=== PATIENT | female | born 1945 | race Caucasian/White ===

== ENCOUNTER 2017-12-05 11:50 | Emergency (ER) | payer MEDICARE ==
[2017-12-05 12:32] LABS: BASOPHILS # (AUTO) 0.1 10^3/uL (0.0-0.1); EOSINOPHILS # (AUTO) 0.3 10^3/uL (0.0-0.7); EOSINOPHILS % (AUTO) 3.9 %; HGB - HEMOGLOBIN 14.9 g/dL (12.0-16.0); LYMPHOCYTES # (AUTO) 2.2 10^3/uL (1.5-3.5); LYMPHOCYTES % (AUTO) 27.3 %; MEAN CORPUSCULAR HEMOGLOBIN 31.9 pg (27.0-31.0); MEAN CORPUSCULAR HGB CONC 33.6 g/dL (32.0-36.0); MEAN CORPUSCULAR VOLUME 94.8 fL (81.0-99.0); MEAN PLATELET VOLUME 7.7 fL (7.9-10.8); MONOCYTES # (AUTO) 0.5 10^3/uL (0.0-1.0); MONOCYTES % (AUTO) 5.9 %; NEUTROPHILS % (AUTO) 61.9 %; PLT - PLATELET COUNT 296 10^3/uL (130-450); RED BLOOD COUNT 4.68 10^6/uL (4.20-5.40); RED CELL DISTRIBUTION WIDTH 13.3 % (12.0-15.0); WHITE BLOOD COUNT 8.1 x10^3/uL (4.8-10.8)
[2017-12-05 12:45] LABS: ALBUMIN 4.4 g/dL (3.2-5.5); ALBUMIN/GLOBULIN RATIO 1.2 (1.0-2.2); BILIRUBIN,TOTAL 0.6 mg/dL (0.2-1.0); CALCIUM 9.7 mg/dL (8.5-10.3); CREATININE 0.8 mg/dL (0.4-1.0); TOTAL PROTEIN 8.1 g/dL (6.7-8.2)
--- NOTE | 2017-12-05 13:49 | ED Physician Documentation ---
PD HPI ABD PAIN - Stated complaint Stated Complaint: AB PX - Chief complaint Chief Complaint: Abd Pain - History obtained from History obtained from: Patient - History of Present Illness Timing - onset: How many weeks ago (2) Timing - duration: Weeks (2) Timing - details: Waxing and waning Pain level max: 5 Pain level now: 3 Quality: Aching, Pain Location: RUQ, LLQ Radiation: Other (non-radiating) Improved by: Other (nothing) Worsened by: Eating Associated symptoms: No: Fever, Nausea, Vomiting, Hematemesis, Diarrhea, Constipation, Melena, Hematochezia Similar symptoms before: Diagnosis (states has been told she has "gallstones") Recently seen: Not recently seen Review of Systems Ten Systems: 10 systems reviewed and negative Constitutional: denies: Fever, Chills Ears: denies: Ear pain Nose: denies: Rhinorrhea / runny nose, Congestion Throat: denies: Sore throat Cardiac: denies: Chest pain / pressure Respiratory: denies: Cough GI: denies: Nausea, Vomiting, Diarrhea, Hematemesis, Bloody / black stool Skin: denies: Rash Musculoskeletal: denies: Neck pain, Back pain Neurologic: denies: Focal weakness, Numbness, Headache PD PAST MEDICAL HISTORY - Past Medical History Past Medical History: Yes - Past Surgical History Past Surgical History: Yes General: Appendectomy - Present Medications Home Medications: Ambulatory Orders Medication Instructions Recorded Confirmed ALPRAZolam [Alprazolam] mg PO 12/05/17 Atorvastatin [Lipitor] 12/05/17 Cephalexin [Keflex] 500 mg PO Q6H #28 capsule 12/05/17 Meloxicam [Mobic] 7.5 mg PO BID PRN #20 tablet 12/05/17 QUEtiapine [SEROquel] mg PO ONCE 12/05/17 - Allergies Allergies/Adverse Reactions: Allergies Allergy/AdvReac Type Severity Reaction Status Date / Time No Known Drug Allergies Allergy Verified 12/05/17 14:12 - Living Situation Living Arrangement: reports: At home - Social History Does the pt smoke?: No Does the pt drink ETOH?: No Does the pt have substance abuse?: No - Family History Family history: reports: Non contributory PD ED PE NORMAL - Vitals Vital signs reviewed: Yes - General General: Alert and oriented X 3, No acute distress - HEENT HEENT: Moist mucous membranes - Neck Neck: Supple, no meningeal sign - Cardiac Cardiac: RRR - Respiratory Respiratory: No respiratory distress, Clear bilaterally - Abdomen Abdomen: Soft, Non distended, Other (TTP RUQ and LLQ. no peritoneal signs. equivocal waddell's sign) - Derm Derm: Warm and dry - Neuro Neuro: Alert and oriented X 3 - Psych Psych: Normal mood, Normal affect Results - Vitals Vitals: Vital Signs - 24 hr 12/05/17 12/05/17 12:04 15:00 Temperature 36.0 C L Heart Rate 68 63 Respiratory 16 18 Rate Blood Pressure 134/110 H 139/77 H O2 Saturation 100 98 Oxygen O2 Source Room air - Labs Labs: Laboratory Tests 12/05/17 12/05/17 12/05/17 12:15 12:20 12:20 WBC 8.1 RBC 4.68 Hgb 14.9 Hct 44.4 MCV 94.8 MCH 31.9 H MCHC 33.6 RDW 13.3 Plt Count 296 MPV 7.7 L Neut # (Auto) 5.0 Lymph # (Auto) 2.2 [place] # (Auto) 0.5 Eos # (Auto) 0.3 Baso # (Auto) 0.1 Absolute Nucleated RBC 0.00 Nucleated RBC % 0.0 Sodium 135 Potassium 4.0 Chloride 100 L Carbon Dioxide 27 Anion Gap 8.0 BUN 20 Creatinine 0.8 Estimated GFR (MDRD) 71 L Glucose 103 H Calcium 9.7 Total Bilirubin 0.6 AST 32 ALT 47 Alkaline Phosphatase 65 Total Protein 8.1 Albumin 4.4 Globulin 3.7 Albumin/Globulin Ratio 1.2 Lipase 25 Urine Color YELLOW Urine Clarity HAZY Urine pH 5.0 Ur Specific [place] 1.020 Urine Protein NEGATIVE Urine Glucose (UA) NEGATIVE Urine Ketones NEGATIVE Urine Occult Blood NEGATIVE Urine Nitrite NEGATIVE Urine Bilirubin NEGATIVE Urine Urobilinogen 0.2 (NORMAL) Ur Leukocyte Esterase SMALL H Urine RBC 0-5 Urine WBC 11-25 H Ur Squamous Epith Cells FEW Squamous Urine Bacteria Many H Urine Yeast PRESENT Ur Microscopic Review INDICATED Urine Culture Comments INDICATED - Rads (name of study) RUQ US Radiology: Prelim report reviewed, EMP read contemporaneously, See rad report ( Cholelithiasis. Borderline wall thickening (4 mm). No pericholecystic fluid or ductal dilation) PD MEDICAL DECISION MAKING - ED course Complexity details: reviewed results, re-evaluated patient, considered differential, d/w patient, d/w regional sales consultant ED course: Patient is a 72-year-old female who presents to the emergency department with abdominal pain. Appears to have a UTI and will treat her for this. Also had yeast in the urine and given Diflucan here. She has cholelithiasis with borderline wall thickening but no other secondary signs of acute cholecystitis. Abdomen is soft, nontender nondistended on serial exam. She states that she would like to [facility] she should have surgery for her gallbladder she does seem to have symptoms of biliary colic. I did discuss the case with Dr. Mcleod, general surgery on- call who recommended close follow-up with her doctor. [place]. Patient counseled regarding signs and symptoms for which I believe and urgent re-evaluation would be necessary. Patient with good understanding of and agreement to plan and is comfortable going home at this time This document was made in part using voice recognition software. While efforts are made to proofread this document, sound alike and grammatical errors may occur. - Sepsis Event Vital Signs: Vital Signs - 24 hr 12/05/17 12/05/17 12:04 15:00 Temperature 36.0 C L Heart Rate 68 63 Respiratory 16 18 Rate Blood Pressure 134/110 H 139/77 H O2 Saturation 100 98 Oxygen O2 Source Room air Departure - Departure Disposition: 01 Home, Self Care Clinical Impression: Biliary colic Abdominal pain Qualifiers: Abdominal location: right upper quadrant Qualified Code(s): R10.11 - Right upper quadrant pain UTI (urinary tract infection) Qualifiers: Urinary tract infection type: acute cystitis Hematuria presence: without hematuria Qualified Code(s): N30.00 - Acute cystitis without hematuria Condition: Good Instructions: ED Gallstone W Biliary Colic Follow-Up: your,doctor in 3 days [Other] Prescriptions: Cephalexin [Keflex] 500 mg PO Q6H #28 capsule Meloxicam [Mobic] 7.5 mg PO BID PRN #20 tablet PRN Reason: Pain Comments: Return if you worsen. Take all antibiotics until gone. It is recommended to see your doctor in the next 3 days to ensure you can see a surgeon to have your gallbladder removed. Discharge Date/Time: 12/05/17 15:47
[2017-12-05 14:18] LABS: BILIRUBIN,URINE NEGATIVE (NEGATIVE); GLUCOSE, URINE (UA) NEGATIVE (NEGATIVE); KETONES,URINE (UA) NEGATIVE (NEGATIVE); LEUKOCYTE ESTERASE, URINE SMALL (NEGATIVE); NITRITE,URINE NEGATIVE (NEGATIVE); OCCULT BLOOD,URINE NEGATIVE (NEGATIVE); PROTEIN,URINE NEGATIVE (NEGATIVE); UROBILINOGEN,URINE 0.2 (NORMAL) E.U./dL (NORMAL)
[2017-12-05 14:24] LABS: CLARITY,URINE HAZY (CLEAR)
--- NOTE | 2017-12-05 14:26 | Ultrasound Report ---
EXAM: ABDOMEN ULTRASOUND LIMITED, RUQ EXAM DATE: 12/05/2017 02:19 PM. CLINICAL HISTORY: Right upper quadrant pain. COMPARISON: None. TECHNIQUE: Real-time scanning was performed with static images obtained. FINDINGS: Liver: Normal in size and echotexture. 14.5 cm. Main portal vein flow: Hepatopetal. Gallbladder: Intraluminal stone measuring up to 1.4 cm. Borderline wall thickening (4 mm). No pericho lecystic fluid.. Biliary System: CBD measures 6 mm. No intrahepatic or extrahepatic ductal dilatation. Other: The pancreas is secured by bowel gas. The right kidney is grossly normal. IMPRESSION: Cholelithiasis. Borderline wall thickening (4 mm). No pericholecystic fluid or ductal dil ation. [facility] Referring Provider Line: [phone] SITE ID: [id number]
[2017-12-05 14:33] LABS: BACTERIA,URINE Many /HPF (None Seen); RBC,URINE 0-5 /HPF (0-5); SQUAMOUS EPITHELIAL CELL,UR FEW Squamous (<= Few); YEAST,URINE PRESENT
[2017-12-05] MEDS ORDERED: ACETAMINOPHEN 325 MG TABLET PO STA (14:51)
[2017-12-05 15:01] VITALS: BP 139/77
[2017-12-05] MEDS ORDERED: FLUCONAZOLE 100 MG TABLET PO STA (15:31)
== END 2017-12-05 15:47 | disposition home or self-care (01) ==
LOC: ED 11:50
DX: R10.11 Right upper quadrant pain (principal); N30.00 Acute cystitis without hematuria
CPT/HCPCS: 36415; 76705; 80053; 81001; 83690; 85025; 87077; 87086; 87181; 99283; 99284; A9270; 81003

== ENCOUNTER 2018-05-12 09:22 | Outpatient (CLI) | payer MEDICARE ==
[2018-05-12 18:27] LABS: BASOPHILS % (AUTO) 0.8 %; EOSINOPHILS # (AUTO) 0.3 10^3/uL (0.0-0.7); EOSINOPHILS % (AUTO) 5.8 %; HGB - HEMOGLOBIN 13.2 g/dL (12.0-16.0); LYMPHOCYTES # (AUTO) 2.1 10^3/uL (1.5-3.5); LYMPHOCYTES % (AUTO) 39.5 %; MEAN CORPUSCULAR HEMOGLOBIN 31.4 pg (27.0-31.0); MEAN CORPUSCULAR HGB CONC 32.6 g/dL (32.0-36.0); MEAN CORPUSCULAR VOLUME 96.2 fL (81.0-99.0); MEAN PLATELET VOLUME 7.8 fL (7.9-10.8); MONOCYTES # (AUTO) 0.4 10^3/uL (0.0-1.0); NEUTROPHILS # (AUTO) 2.4 10^3/uL (1.5-6.6); NEUTROPHILS % (AUTO) 45.9 %; PLT - PLATELET COUNT 333 10^3/uL (130-450); RED BLOOD COUNT 4.21 10^6/uL (4.20-5.40); WHITE BLOOD COUNT 5.2 x10^3/uL (4.8-10.8)
[2018-05-12 18:55] LABS: ALBUMIN 4.1 g/dL (3.2-5.5); ALBUMIN/GLOBULIN RATIO 1.5 (1.0-2.2); ALKALINE PHOSPHATASE 45 IU/L (42-121); ALT ALANINE AMINOTRANSFERASE 31 IU/L (10-60); AST ASPARTATE AMINOTRANSFERASE 18 IU/L (10-42); BILIRUBIN,TOTAL 0.6 mg/dL (0.2-1.0); BUN - BLOOD UREA NITROGEN 23 mg/dL (6-20); CALCIUM 9.4 mg/dL (8.5-10.3); CARBON DIOXIDE - CO2 29 mmol/L (21-32); CHLORIDE 101 mmol/L (101-111); CHOL/HDL RATIO 2.4 (<4.4); CHOLESTEROL 180 mg/dL; CREATININE 0.9 mg/dL (0.4-1.0); GFR - MDRD 62 (>89); GLUCOSE 96 mg/dL (70-100); HDL CHOLESTEROL 76 mg/dL; LDL CHOLESTEROL,CALCULATED 91 mg/dL; LDL/HDL RATIO 1.2 (<4.4); SODIUM 137 mmol/L (135-145); TOTAL PROTEIN 6.8 g/dL (6.7-8.2); VLDL CHOLESTEROL 13 mg/dL
== END 2018-05-12 09:23 | disposition home or self-care (01) ==
LOC: LAB.F 09:22
PROVIDERS: ATTEND Nurse Practitioner Primary Care
DX: Z00.00 Encounter for general adult medical examination without abnormal findings (principal); Z79.899 Other long term (current) drug therapy; E78.5 Hyperlipidemia, unspecified
CPT/HCPCS: 36415; 80053; 80061; 83721; 85025

== ENCOUNTER 2020-06-07 12:51 | Outpatient (CLI) | payer MEDICARE ==
[2020-06-07 19:54] LABS: BASOPHILS # (AUTO) 0.1 10^3/uL (0.0-0.1); EOSINOPHILS # (AUTO) 0.3 10^3/uL (0.0-0.7); EOSINOPHILS % (AUTO) 4.9 %; HGB - HEMOGLOBIN 13.8 g/dL (12.0-16.0); LYMPHOCYTES # (AUTO) 2.3 10^3/uL (1.5-3.5); MEAN CORPUSCULAR HEMOGLOBIN 31.2 pg (27.0-31.0); MEAN CORPUSCULAR HGB CONC 32.8 g/dL (32.0-36.0); MEAN CORPUSCULAR VOLUME 95.2 fL (81.0-99.0); MEAN PLATELET VOLUME 10.8 fL (7.9-10.8); MONOCYTES # (AUTO) 0.6 10^3/uL (0.0-1.0); MONOCYTES % (AUTO) 8.8 %; NEUTROPHILS # (AUTO) 3.1 10^3/uL (1.5-6.6); NEUTROPHILS % (AUTO) 49.1 %; PLT - PLATELET COUNT 271 10^3/uL (130-450); RED BLOOD COUNT 4.42 10^6/uL (4.20-5.40); RED CELL DISTRIBUTION WIDTH 12.8 % (12.0-15.0); WHITE BLOOD COUNT 6.3 x10^3/uL (4.8-10.8)
[2020-06-07 20:18] LABS: ALBUMIN 4.1 g/dL (3.2-5.5); BILIRUBIN,DIRECT 0.1 mg/dL (0.1-0.5); BILIRUBIN,TOTAL 0.9 mg/dL (0.2-1.0); TOTAL PROTEIN 6.9 g/dL (6.7-8.2)
[2020-06-07 20:25] LABS: THYROID STIMULATING HORMONE 1.27 uIU/mL (0.34-5.60)
[2020-06-07 20:28] LABS: FREE T4 (FREE THYROXINE) 0.86 ng/dL (0.58-1.64)
[2020-06-14 17:43] LABS: ENDOMYSIAL ANTIBODY SCR IGA NEGATIVE (NEGATIVE); GLIADIN (DEAMIDATED) AB IGA 4 U (<20); GLIADIN (DEAMIDATED) AB IGG 2 U (<20); IMMUNOGLOBULIN A 128 mg/dL (70-320)
== END 2020-06-07 12:52 | disposition home or self-care (01) ==
LOC: LAB.S 12:51
PROVIDERS: ATTEND Surgery
DX: R19.7 Diarrhea, unspecified (principal)
CPT/HCPCS: 36415; 80076; 82784; 83516; 84439; 84443; 85025; 86256

== ENCOUNTER 2020-08-30 14:18 | Outpatient (CLI) | payer MEDICARE ==
[2020-08-30] MEDS ORDERED: IOVERSOL 320 100 ML VIAL IVP ONE ×2 (15:00→16:17)
[2020-08-30] MEDS ORDERED: IOPAMIDOL-300 50 ML VIAL ONE (15:00)
[2020-08-30 15:20] LABS: CREATININE 0.7 mg/dL (0.4-1.0)
[2020-08-30] MEDS ORDERED: IOPAMIDOL-300 50 ML VIAL PO ONE (16:18)
--- NOTE | 2020-08-30 17:03 | CT Report ---
PROCEDURE: Abdomen/Pelvis W INDICATIONS: ABD PX,BLOATING,DIARRHEA,ANOREXIA,NAUSEA CONTRAST: IV CONTRAST: Optiray 320 ml: 100 PO CONTRAST: Isovue 300 ml50 TECHNIQUE: After the administration of IV and oral contrast, 5 mm thick sections acquired from the diaphragms to the symphysis. 5 mm thick coronal and sagittal reformats were acquired. For radiation dose reducti on, the following was used: automated exposure control, adjustment of mA and/or kV according to carmina ent size. COMPARISON: None. FINDINGS: Image quality: Excellent. ABDOMEN: Lung bases: Lung bases are clear. Heart size is normal. Solid organs: Spleen unremarkable. Hepatic steatosis.. Gallbladder surgically absent Biliary system is non dilated. Pancreas enhances normally. No adrenal nodules. Kidneys demonstrate normal size a nd enhancement, without hydronephrosis. Peritoneum and bowel: Bowel loops demonstrate normal wall thickness and caliber. No free fluid or a ir. Normal appendix. Scattered nonspecific air-fluid levels. No transition point. Incidental colonic diverticulosis. Nodes and vessels: No retroperitoneal or mesenteric adenopathy by size criteria. Aorta and inferior vena cava are normal in size. Miscellaneous: No ventral hernias. PELVIS: Genitourinary: Bladder wall thickness is normal. Miscellaneous: No inguinal hernias or adenopathy. Bones: No suspicious bony lesions. Presumed bilateral pelvic bone graft harvest sites. Age-indeterm inate mild T12 compression fracture and/or Schmorl's node. IMPRESSION: No specific evidence of bowel obstruction although continued surveillance with abdominal radiographs could be performed if the patient's symptoms do not improve. Hepatic steatosis Status post cholecystectomy Age-indeterminate T12 compression fracture and Schmorl's node of unclear clinical significance. Recom mend correlation to point tenderness Elsewhere, no acute abnormality Reviewed by: Barney Ortega MD on 08/30/2020 5:02 PM PST Approved by: Barney Ortega MD on 08/30/2020 5:02 PM PST Station ID: [id number]
== END 2020-08-30 14:19 | disposition home or self-care (01) ==
LOC: LAB 14:18
PROVIDERS: ATTEND Internal Medicine
DX: R10.9 Unspecified abdominal pain (principal); R14.0 Abdominal distension (gaseous); R19.7 Diarrhea, unspecified; R63.0 Anorexia; R11.0 Nausea; Z79.899 Other long term (current) drug therapy; K76.0 Fatty (change of) liver, not elsewhere classified
CPT/HCPCS: 36415; 74177; 82565; Q9967

== ENCOUNTER 2020-09-19 11:44 | Outpatient (CLI) | payer MEDICARE ==
--- NOTE | 2020-09-19 17:56 | XRAY Report ---
PROCEDURE: Tib/Fib RT INDICATIONS: PAROXYSMAL ATRIAL FIBRILLATION TECHNIQUE: 2 views of the tibia and fibula were acquired. COMPARISON: None FINDINGS: Bones: No acute fractures or dislocations. No suspicious bony lesions. Old distal tibia and fibula r fractures, with apparent osseous fusion between the distal tibia and fibula from the prior trauma. Soft tissues: No suspicious soft tissue calcifications or masses. On the lateral view there is an u nusual lobulation of the anterior soft tissues over the proximal tibial diaphysis, possibly represent ing infection or old posttraumatic change. IMPRESSION: Old trauma to the distal tibia and fibula with interosseous fusion. Soft tissue lobulation ventral to the proximal tibial diaphysis could represent acute infection or old trauma with scarring. Reviewed by: Peewee Miller MD on 09/19/2020 5:55 PM PDT Approved by: Peewee Miller MD on 09/19/2020 5:55 PM PDT Station ID: [id number]
== END 2020-09-19 11:45 | disposition home or self-care (01) ==
LOC: DI 11:44
PROVIDERS: ATTEND Internal Medicine
DX: M79.604 Pain in right leg (principal); S82.301S Unspecified fracture of lower end of right tibia, sequela; S82.831S Other fracture of upper and lower end of right fibula, sequela

== ENCOUNTER 2020-09-30 07:00 | Outpatient (CLI) | payer MEDICARE ==
--- NOTE | 2020-09-30 12:07 | XRAY Report ---
PROCEDURE: Foot 3 View RT INDICATIONS: R FOOT PX TECHNIQUE: 3 views of the foot were acquired. COMPARISON: Ankle plain films same day. FINDINGS: Bones: No acute fractures or dislocations. No suspicious bony lesions. There is a distortion of wh at likely is the distal fibular diaphysis, but only partially visualized, and possibly related to tra shanti. No acute trauma to the foot is seen. 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 Soft tissues: No tibiotalar joint effusion. Achilles tendon appears normal. IMPRESSION: Distortion of the distal fibula is the likely cause for the bulbous enlargement of the posterior aspe ct of the tibia/fibula seen on the lateral view. Please correlate clinically for prior trauma to that area. No comparisons are available for review that includes this area. Therefore, follow-up by tibia /fibula full length frontal and lateral views may be warranted. Reviewed by: Peewee Miller MD on 09/30/2020 12:06 PM PDT Approved by: Peewee Miller MD on 09/30/2020 12:06 PM PDT Station ID: [id number]
--- NOTE | 2020-09-30 12:11 | XRAY Report ---
PROCEDURE: Ankle 3 View RT INDICATIONS: R ANKLE PX TECHNIQUE: 3 views of the ankle were acquired. COMPARISON: Foot plain film same day. FINDINGS: Bones: No acute fractures or dislocations. There is a distortion of the distal tibia and fibula in the region of the diaphysis and metadiaphyseal junctions. There is interosseous bridging over a lengt h of approximately 7 cm. Medial bowing in this area is present,, presumably posttraumatic. Ankle mort ise is normally aligned. No suspicious bony lesions. Soft tissues: No tibiotalar joint effusion. Achilles tendon appears normal. IMPRESSION: Presumed prior trauma to the distal diaphysis of both the tibia and fibula. Bowing along what appears to be the metadiaphyseal fracture planes is present, medially. No definite acute diseas e is found. The tibia and fibula more superiorly are not evaluated by this study. If clinically clair ed a follow-up full length image could be obtained to assess for possible additional abnormality is m ore superiorly. There is osseous bridging at the interosseous membrane in the area of presumed prior trauma, measurin g up to 7 cm in craniocaudad length. Reviewed by: Peewee Miller MD on 09/30/2020 12:10 PM PDT Approved by: Peewee Miller MD on 09/30/2020 12:10 PM PDT Station ID: [id number]
== END 2020-09-30 23:59 | disposition home or self-care (01) ==
LOC: DI.N 07:00
PROVIDERS: ATTEND Orthopaedic Surgery
DX: M25.571 Pain in right ankle and joints of right foot (principal); M79.671 Pain in right foot

== ENCOUNTER 2020-10-29 07:00 | Outpatient (CLI) | payer MEDICARE ==
--- NOTE | 2020-10-29 14:03 | XRAY Report ---
PROCEDURE: Foot 3 View RT INDICATIONS: NONDISPLACED FX OF R 2ND METATARSAL TECHNIQUE: 3 views of the foot were acquired. COMPARISON: 09/30/2020 plain film FINDINGS: Bones: Subacute proximal second metatarsal fracture is present, as before. There is cortication of th e fracture margins. No suspicious bony lesions. Soft tissues: No tibiotalar joint effusion. Achilles tendon appears normal. IMPRESSION: No change in subacute second metatarsal fracture. Reviewed by: Sarthak Rincon MD on 10/29/2020 2:01 PM PDT Approved by: Sarthak Rincon MD on 10/29/2020 2:01 PM PDT Station ID: [id number]
== END 2020-10-29 23:59 | disposition home or self-care (01) ==
LOC: DI.N 07:00
PROVIDERS: ATTEND Orthopaedic Surgery
DX: S92.324A Nondisplaced fracture of second metatarsal bone, right foot, initial encounter for closed fracture (principal)

== ENCOUNTER 2020-11-19 18:59 | Outpatient (CLI) | payer MEDICARE ==
--- NOTE | 2020-11-19 17:48 | XRAY Report ---
PROCEDURE: Foot 3 View RT INDICATIONS: NONDISPLACED FX OF R 2ND METATARSAL TECHNIQUE: 3 views of the foot were acquired. COMPARISON: Prior foot series dated October 29, 2020. FINDINGS: Bones: No significant interval change in appearance or alignment of minimally displaced fracture of t he base of the second metatarsus where the bony lucency is still visible and mild amount of sclerosis present. Background osteoarthritic changes redemonstrated and healed fracture deformities of the dis shaggy fibula and tibia incompletely visualized. Soft tissues: No tibiotalar joint effusion. Achilles tendon appears normal. IMPRESSION: No significant interval change in appearance or alignment of subacute healing fracture involving the base of the second metatarsus. Reviewed by: KAUSHIK Sanchze on 11/19/2020 5:47 PM PDT Approved by: Peewee Miller MD on 11/19/2020 5:47 PM PDT Station ID: [id number]
== END 2020-11-19 23:59 | disposition home or self-care (01) ==
LOC: DI.N 18:59
PROVIDERS: ATTEND Orthopaedic Surgery
DX: S92.321D Displaced fracture of second metatarsal bone, right foot, subsequent encounter for fracture with routine healing (principal)

== ENCOUNTER 2021-04-07 09:59 | Outpatient (CLI) | payer MEDICARE ==
[2021-04-07 14:33] LABS: BASOPHILS # (AUTO) 0.1 10^3/uL (0.0-0.1); BASOPHILS % (AUTO) 1.1 %; EOSINOPHILS # (AUTO) 0.3 10^3/uL (0.0-0.7); EOSINOPHILS % (AUTO) 5.5 %; HCT - HEMATOCRIT 43.7 % (37.0-47.0); HGB - HEMOGLOBIN 14.2 g/dL (12.0-16.0); LYMPHOCYTES # (AUTO) 1.8 10^3/uL (1.5-3.5); LYMPHOCYTES % (AUTO) 34.4 %; MEAN CORPUSCULAR HEMOGLOBIN 30.9 pg (27.0-31.0); MEAN CORPUSCULAR HGB CONC 32.5 g/dL (32.0-36.0); MEAN CORPUSCULAR VOLUME 95.2 fL (81.0-99.0); MEAN PLATELET VOLUME 10.3 fL (7.9-10.8); MONOCYTES # (AUTO) 0.4 10^3/uL (0.0-1.0); MONOCYTES % (AUTO) 8.3 %; NEUTROPHILS # (AUTO) 2.7 10^3/uL (1.5-6.6); NEUTROPHILS % (AUTO) 50.5 %; PLT - PLATELET COUNT 298 10^3/uL (130-450); RED BLOOD COUNT 4.59 10^6/uL (4.20-5.40); RED CELL DISTRIBUTION WIDTH 13.2 % (12.0-15.0); WHITE BLOOD COUNT 5.3 x10^3/uL (4.8-10.8)
[2021-04-07 15:37] LABS: ALBUMIN 4.2 g/dL (3.2-5.5); ALBUMIN/GLOBULIN RATIO 1.9 (1.0-2.2); ALKALINE PHOSPHATASE 43 IU/L (42-121); ALT ALANINE AMINOTRANSFERASE 22 IU/L (10-60); AST ASPARTATE AMINOTRANSFERASE 19 IU/L (10-42); BILIRUBIN,TOTAL 0.6 mg/dL (0.2-1.0); BUN - BLOOD UREA NITROGEN 23 mg/dL (6-20); CALCIUM 9.2 mg/dL (8.5-10.3); CARBON DIOXIDE - CO2 30 mmol/L (21-32); CHLORIDE 101 mmol/L (101-111); CHOL/HDL RATIO 2.1 (<4.4); CHOLESTEROL 170 mg/dL; CREATININE 0.8 mg/dL (0.4-1.0); GFR - MDRD 70 (>89); GLUCOSE 85 mg/dL (70-100); HDL CHOLESTEROL 81 mg/dL; LDL CHOLESTEROL,CALCULATED 75 mg/dL; LDL/HDL RATIO 0.9 (<4.4); POTASSIUM 4.2 mmol/L (3.5-5.0); SODIUM 138 mmol/L (135-145); TOTAL PROTEIN 6.4 g/dL (6.7-8.2); TRIGLYCERIDES 71 mg/dL; VLDL CHOLESTEROL 14 mg/dL
[2021-04-07 15:46] LABS: THYROID STIMULATING HORMONE 1.3 uIU/mL (0.34-5.60)
== END 2021-04-07 10:00 | disposition home or self-care (01) ==
LOC: LAB.S 09:59
PROVIDERS: ATTEND Internal Medicine
DX: R53.83 Other fatigue (principal); E78.5 Hyperlipidemia, unspecified; R74.8 Abnormal levels of other serum enzymes; R63.0 Anorexia; M25.50 Pain in unspecified joint; M79.10 Myalgia, unspecified site; K76.0 Fatty (change of) liver, not elsewhere classified; F32.9 Major depressive disorder, single episode, unspecified
CPT/HCPCS: 36415; 80053; 80061; 82607; 83721; 84443; 85025

== ENCOUNTER 2021-04-09 16:38 | Outpatient (CLI) | payer MEDICARE ==
[2021-04-09 20:38] LABS: BILIRUBIN,URINE NEGATIVE (NEGATIVE); GLUCOSE, URINE (UA) NEGATIVE (NEGATIVE); KETONES,URINE (UA) NEGATIVE (NEGATIVE); LEUKOCYTE ESTERASE, URINE NEGATIVE (NEGATIVE); NITRITE,URINE NEGATIVE (NEGATIVE); OCCULT BLOOD,URINE NEGATIVE (NEGATIVE); PROTEIN,URINE NEGATIVE (NEGATIVE); UROBILINOGEN,URINE 0.2 (NORMAL) E.U./dL (NORMAL)
[2021-04-09 20:49] LABS: AMORPHOUS SEDIMENT,UR Marked /LPF; BACTERIA,URINE None Seen /HPF (None Seen); CLARITY,URINE CLOUDY (CLEAR); CRYSTALS,URINE 3-5 Calcium Oxalate /LPF; RBC,URINE None Seen /HPF (0-5); SQUAMOUS EPITHELIAL CELL,UR RARE Squamous (<= Few); WBC,URINE 0-3 /HPF (0-5)
== END 2021-04-09 16:39 | disposition home or self-care (01) ==
LOC: LAB.S 16:38
PROVIDERS: ATTEND Internal Medicine
DX: R39.9 Unspecified symptoms and signs involving the genitourinary system (principal)
CPT/HCPCS: 81001; 81003; 87086

== ENCOUNTER 2021-04-25 09:57 | Outpatient (CLI) | payer MEDICARE ==
--- NOTE | 2021-04-29 12:11 | DEXA Report ---
PROCEDURE: Dexa Spine and/or Hip INDICATIONS: POST MENOPAUSAL TECHNIQUE: Dual energy x-ray absorptiometry (DXA) was performed on a AVIcode System. Regions measur ed are the AP Spine, femoral neck, and if needed forearm. COMPARISON: None. FINDINGS: Lumbar Spine: Bone Mineral Density 0.865 g/cm/cm,T score -2.6, osteoporosis Left Femoral Neck: Bone Mineral Density 0.803 g/cm/cm, T score -1.6, osteopenia (T score greater or equal to -1.0: NORMAL) (T score from -1.1 to -2.4: OSTEOPENIA) (T score less than or equal to -2.5 to: OSTEOPOROSIS) Impression: OSTEOPOROSIS. Patient is at high risk for fracture. Patients with diagnosis of osteoporosis or osteopenia should have regular bone mineral density assess ment. For those eligible for Medicare, routine testing is allowed once every 2 years. Testing frequ ency can be increased for patients who have rapidly progressing disease or for those who are receivin g medical therapy to restore bone mass. Reviewed by: Abdirizak Jensen MD on 04/29/2021 12:10 PM PDT Approved by: Abdirizak Jensen MD on 04/29/2021 12:10 PM PDT Station ID: [id number]
== END 2021-04-25 09:58 | disposition home or self-care (01) ==
LOC: DI 09:57
PROVIDERS: ATTEND Internal Medicine
DX: M81.0 Age-related osteoporosis without current pathological fracture (principal); Z78.0 Asymptomatic menopausal state

== ENCOUNTER 2021-04-25 09:59 | Outpatient (CLI) | payer MEDICARE ==
--- NOTE | 2021-04-28 08:21 | Mammography Report ---
BILATERAL DIGITAL SCREENING MAMMOGRAM 3D/2D: 04/25/2021 CLINICAL: Routine screening. Comparison is made to exams dated: 02/19/2014 mammogram, 07/10/2010 mammogram, and 06/12/2009 mammogra m - [facility]. There are scattered fibroglandular elements in both breasts. There is a benign mass in the left breast. There also are biopsy clips in the left breast. No significant masses, calcifications, or other findings are seen in either breast. There has been no significant interval change. IMPRESSION: BENIGN There is no mammographic evidence of malignancy. A 1 year screening mammogram is recommended. This exam was interpreted at Station ID: [id number]. NOTE: For mammograms, a report in lay terms will be sent to the patient. Approximately 15% of breast malignancies will not be visualized mammographically. In the management of a palpable breast mass, a negative mammogram must not discourage biopsy of a clinically suspicious lesion. Electronically Signed By: Royer foreman/tarik:04/25/2021 12:09:23 ACR BI-RADS Category 2: Benign Finding(s) 3342F PARENCHYMAL PATTERN: (A) - The breast(s) demonstrate(s) scattered fibroglandular densities. BI-RADS CATEGORY: (2) - 2 RECOMMENDATION: (ANNUAL) - Recommend routine annual screening mammography. [id number] 1 year screening LATERALITY: (B)
== END 2021-04-25 10:00 | disposition home or self-care (01) ==
LOC: DI 09:59
PROVIDERS: ATTEND Internal Medicine
DX: Z12.31 Encounter for screening mammogram for malignant neoplasm of breast (principal)

== ENCOUNTER 2021-09-07 12:24 | Emergency (ER) | payer MEDICARE ==
[2021-09-07 12:57] LABS: BASOPHILS # (AUTO) 0.1 10^3/uL (0.0-0.1); BASOPHILS % (AUTO) 0.6 %; EOSINOPHILS # (AUTO) 0.2 10^3/uL (0.0-0.7); HGB - HEMOGLOBIN 16.1 g/dL (12.0-16.0); LYMPHOCYTES # (AUTO) 2.5 10^3/uL (1.5-3.5); LYMPHOCYTES % (AUTO) 25.4 %; MEAN CORPUSCULAR HEMOGLOBIN 31.4 pg (27.0-31.0); MEAN CORPUSCULAR HGB CONC 35.8 g/dL (32.0-36.0); MEAN CORPUSCULAR VOLUME 87.7 fL (81.0-99.0); MEAN PLATELET VOLUME 8.9 fL (7.9-10.8); NEUTROPHILS % (AUTO) 61.3 %; PLT - PLATELET COUNT 423 10^3/uL (130-450); RED BLOOD COUNT 5.13 10^6/uL (4.20-5.40); RED CELL DISTRIBUTION WIDTH 12.6 % (12.0-15.0); WHITE BLOOD COUNT 9.8 x10^3/uL (4.8-10.8)
[2021-09-07 13:12] LABS: ALBUMIN 4.2 g/dL (3.2-5.5); ALBUMIN/GLOBULIN RATIO 1.2 (1.0-2.2); BILIRUBIN,TOTAL 0.9 mg/dL (0.2-1.0); CREATININE 0.6 mg/dL (0.4-1.0); POTASSIUM 3.3 mmol/L (3.5-5.0); TOTAL PROTEIN 7.7 g/dL (6.7-8.2)
[2021-09-07] MEDS ORDERED: PROMETHAZINE INJ 25 MG in SODIUM CHLORIDE 0.9% 50 ML IV STA (16:17)
[2021-09-07] MEDS ORDERED: LORazepam 2 MG/ML VIAL IVP STA (16:17)
[2021-09-07] MEDS ORDERED: SODIUM CHLORIDE 0.9% 1,000 ML IV STA (16:17)
--- NOTE | 2021-09-07 16:28 | ED Physician Documentation ---
History of Present Illness - Stated complaint Stated Complaint: WEAKNESS/DIZZINESS - Chief complaint Chief Complaint: General - History obtained from History obtained from: Patient - History of Present Illness Timing: Today Pain level max: 0 Pain level now: 0 - Additonal information Additional information: Patient is a 76-year-old female who presents to the emergency department stating she has felt dizzy for the past 24 hours. She states whenever she moves her head she feels the room spinning around her. No neck or back pain. No headache or injury. This is associated with nausea and vomiting. No fevers or chills. No trauma. No changes to her medications. No focal neurological deficits. Has not had similar symptoms previously. Review of Systems Ten Systems: 10 systems reviewed and negative Constitutional: denies: Fever, Chills Cardiac: denies: Chest pain / pressure, Palpitations Respiratory: denies: Cough : denies: Dysuria Skin: denies: Rash Musculoskeletal: denies: Neck pain, Back pain Neurologic: denies: Headache PD PAST MEDICAL HISTORY - Past Medical History Past Medical History: Yes Cardiovascular: High cholesterol Psych: Anxiety - Past Surgical History Past Surgical History: Yes General: Appendectomy - Present Medications Home Medications: Ambulatory Orders Medication Instructions Recorded Confirmed ALPRAZolam [Alprazolam] mg PO 12/05/17 Atorvastatin [Lipitor] 12/05/17 Meloxicam [Mobic] 7.5 mg PO BID PRN #20 tablet 12/05/17 QUEtiapine [SEROquel] mg PO ONCE 12/05/17 cephALEXin [Keflex] 500 mg PO Q6H #28 capsule 12/05/17 Meclizine HCl [Motion Sickness] 25 mg PO Q6H PRN #30 tablet 09/07/21 Promethazine [Phenergan] 25 mg PO Q6H PRN #10 tab 09/07/21 - Allergies Allergies/Adverse Reactions: Allergies Allergy/AdvReac Type Severity Reaction Status Date / Time No Known Drug Allergies Allergy Verified 09/07/21 12:36 - Social History Does the pt smoke?: No Smoking Status: Never smoker Does the pt drink ETOH?: No Does the pt have substance abuse?: No - Immunizations Immunizations are current?: Yes PD ED PE NORMAL - Vitals Vital signs reviewed: Yes - General General: Alert and oriented X 3, No acute distress, Well developed/nourished - HEENT HEENT: PERRL, Moist mucous membranes - Neck Neck: Supple, no meningeal sign - Cardiac Cardiac: RRR, Strong equal pulses - Respiratory Respiratory: No respiratory distress, Clear bilaterally - Abdomen Abdomen: Soft, Non tender, Non distended - Derm Derm: Warm and dry - Extremities Extremities: No edema, No calf tenderness / cord - Neuro Neuro: Alert and oriented X 3, talcer 2-12 intact, No motor deficit, No sensory deficit, Normal speech, Other (Normal gait. Normal cerebellar tests) Eye Opening: Spontaneous Motor: Obeys Commands Verbal: Oriented GCS Score: 15 - Psych Psych: Normal mood, Normal affect Results - Vitals Vitals: Vital Signs - 24 hr 09/07/21 09/07/21 09/07/21 12:36 15:19 17:00 Temperature 36.5 C 36.7 C Heart Rate 66 52 L 51 L Respiratory 16 21 16 Rate Blood Pressure 140/69 H 136/75 H 130/65 O2 Saturation 96 100 97 09/07/21 17:57 Temperature 36.6 C Heart Rate 59 L Respiratory 16 Rate Blood Pressure 113/57 L O2 Saturation 96 Oxygen O2 Source Room air - Labs Labs: Laboratory Tests 09/07/21 09/07/21 09/07/21 12:52 12:52 16:59 WBC 9.8 RBC 5.13 Hgb 16.1 H Hct 45.0 MCV 87.7 MCH 31.4 H MCHC 35.8 RDW 12.6 Plt Count 423 MPV 8.9 Neut # (Auto) 6.0 Lymph # (Auto) 2.5 [place] # (Auto) 1.0 Eos # (Auto) 0.2 Baso # (Auto) 0.1 Absolute Nucleated RBC 0.00 Nucleated RBC % 0.0 Sodium 134 L Potassium 3.3 L Chloride 99 L Carbon Dioxide 23 Anion Gap 12.0 BUN 15 Creatinine 0.6 Estimated GFR (MDRD) 97 Glucose 115 H Calcium 9.0 Total Bilirubin 0.9 AST 26 ALT 30 Alkaline Phosphatase 54 Total Protein 7.7 Albumin 4.2 Globulin 3.5 Albumin/Globulin Ratio 1.2 Lipase 27 Urine Color YELLOW Urine Clarity CLEAR Urine pH 6.0 Ur Specific [place] <=1.005 Urine Protein NEGATIVE Urine Glucose (UA) NEGATIVE Urine Ketones NEGATIVE Urine Occult Blood NEGATIVE Urine Nitrite NEGATIVE Urine Bilirubin NEGATIVE Urine Urobilinogen 0.2 (NORMAL) Ur Leukocyte Esterase TRACE H Urine RBC 0-5 Urine WBC 4-5 Ur Squamous Epith Cells RARE Squamous Urine Bacteria None Seen Ur Microscopic Review INDICATED Urine Culture Comments INDICATED PD MEDICAL DECISION MAKING - ED course Complexity details: reviewed results, re-evaluated patient, considered differential, d/w patient ED course: Patient received Ativan, Phenergan and IV fluids. Dizziness resolved. Tolerating p.o. without difficulty. No significant lab abnormalities. Ambulating without difficulty. No neurological deficits. No cerebellar defects. No indication of stroke. We will have the patient follow-up with her doctor for further care. Likely BPPV. Patient counseled regarding signs and symptoms for which I believe and urgent re-evaluation would be necessary. Patient with good understanding of and agreement to plan and is comfortable going home at this time This document was made in part using voice recognition software. While efforts are made to proofread this document, sound alike and grammatical errors may occur. Departure - Departure Disposition: 01 Home, Self Care Clinical Impression: Vertigo Vomiting Qualifiers: Vomiting type: unspecified Nausea presence: with nausea Qualified Code(s): R11.2 - Nausea with vomiting, unspecified Condition: Good Instructions: ED Vertigo Unspecified, ED Nausea Vomiting Follow-Up: Leeann Crespo MD [Primary Care Provider] - Within 1 week Prescriptions: Meclizine HCl [Motion Sickness] 25 mg PO Q6H PRN #30 tablet PRN Reason: Dizziness Promethazine [Phenergan] 25 mg PO Q6H PRN #10 tab PRN Reason: Nausea / Vomiting Comments: Your laboratory testing does not show any acute abnormalities today. Your dizziness appears likely related to vertigo. We will place you on medications for home and have you follow-up with your doctor for further care. You stated that the medications have helped you here today. Return if you worsen. Your prescriptions were sent to [facility] in [place]. Discharge Date/Time: 09/07/21 18:45
[2021-09-07 17:13] LABS: BILIRUBIN,URINE NEGATIVE (NEGATIVE); GLUCOSE, URINE (UA) NEGATIVE (NEGATIVE); KETONES,URINE (UA) NEGATIVE (NEGATIVE); LEUKOCYTE ESTERASE, URINE TRACE (NEGATIVE); NITRITE,URINE NEGATIVE (NEGATIVE); OCCULT BLOOD,URINE NEGATIVE (NEGATIVE); PROTEIN,URINE NEGATIVE (NEGATIVE); UROBILINOGEN,URINE 0.2 (NORMAL) E.U./dL (NORMAL)
[2021-09-07 17:19] LABS: CLARITY,URINE CLEAR (CLEAR)
[2021-09-07 17:23] LABS: BACTERIA,URINE None Seen /HPF (None Seen); RBC,URINE 0-5 /HPF (0-5); SQUAMOUS EPITHELIAL CELL,UR RARE Squamous (<= Few)
[2021-09-07 17:58] VITALS: BP 113/57
== END 2021-09-07 18:45 | disposition home or self-care (01) ==
LOC: ED 12:24
DX: R42 Dizziness and giddiness (principal); R11.2 Nausea with vomiting, unspecified
CPT/HCPCS: 36415; 80053; 81001; 83690; 85025; 87086; 96365; 96375; 99284; J2060; J7040; 81003

== ENCOUNTER 2021-11-17 16:27 | Outpatient (CLI) | payer MEDICARE ==
--- NOTE | 2021-11-18 07:28 | Ultrasound Report ---
PROCEDURE: Duplex Ext Veins Left INDICATIONS: PAIN IN LEFT LIMB, LEFT KNEE PAIN TECHNIQUE: Real-time imaging, as well as color and pulse Doppler interrogation, were performed of the lower extr emity deep veins from the inguinal ligament to the popliteal fossa. COMPARISON: None. FINDINGS: The deep veins are normally compressible, and free of intraluminal thrombus. Color and pu lse Doppler demonstrate normal phasic intraluminal flow. There is normal augmentation response to di stal compression maneuver. There is a 5.6 x 1.2 x 2.8 cm heterogeneous fluid collection noted over the medial aspect of the left popliteal fossa which correlates with area of patient concern. IMPRESSION: Negative for deep venous thrombosis of the left lower extremity. Suspected Sorensen's cyst in the posteromedial left knee which correlates with area of patient concern. Reviewed by: Abdirizak Jensen MD on 11/18/2021 7:26 AM PDT Approved by: Abdirizak Jensen MD on 11/18/2021 7:26 AM PDT Station ID: [id number]
--- NOTE | 2021-11-18 11:53 | XRAY Report ---
PROCEDURE: Hip w/Pelvis 2-3V LT INDICATIONS: PAIN IN LEFT LIMB, LEFT KNEE PAIN TECHNIQUE: AP pelvis with lateral view(s) of the left hip(s). COMPARISON: None. FINDINGS: Bones: No fractures or dislocations. Pelvic ring appears intact. No suspicious bony lesions. Mode rate bilateral degenerative hip joint space narrowing. No erosions. Periarticular osteophytes are pre sent. Soft tissues: The visualized bowel gas pattern is normal. No suspicious soft tissue calcifications. IMPRESSION: Osteoarthritic changes within the hips bilaterally. Reviewed by: Sandra Jimenez MD on 11/18/2021 11:52 AM PDT Approved by: Sandra Jimenez MD on 11/18/2021 11:52 AM PDT Station ID: [id number]
--- NOTE | 2021-11-18 11:55 | XRAY Report ---
PROCEDURE: Lumbar Spine 2 View INDICATIONS: PAIN IN LEFT LIMB, LEFT KNEE PAIN TECHNIQUE: 2 views of the lumbar spine were acquired. COMPARISON: None. FINDINGS: Bones: 5 [id number] vertebrae are present. There is grade 1 anterolisthesis of L4 on L5 measur ing 6 mm. Moderate to severe disc space narrowing is present L4-5, L5-S1. Moderate foraminal narrowin g is noted at L4-5,, mild L3-4, L5-S1. No vertebral body compression fractures. No suspicious bony l esions. Soft tissues: Overlying bowel gas pattern is normal. No suspicious soft tissue calcifications. IMPRESSION: Grade 1 anterolisthesis of L4 on L5 with moderate disc and foraminal narrowing. Reviewed by: Sandra Jimenez MD on 11/18/2021 11:54 AM PDT Approved by: Sandra Jimenez MD on 11/18/2021 11:54 AM PDT Station ID: [id number]
--- NOTE | 2021-11-18 11:57 | XRAY Report ---
PROCEDURE: Knee 3 View LT INDICATIONS: PAIN IN LEFT LIMB, LEFT KNEE PAIN TECHNIQUE: 3 views of the left knee(s) were acquired. COMPARISON: None. FINDINGS: Bones: No fractures or dislocations. No suspicious bony lesions. Moderate tricompartmental arthrit ic narrowing. No erosions. No periarticular osteophytes. Soft tissues: No joint effusion. No suspicious soft tissue calcifications. IMPRESSION: Moderate tricompartmental arthritic change. Reviewed by: Sandra Jimenez MD on 11/18/2021 11:55 AM PDT Approved by: Sandra Jimenez MD on 11/18/2021 11:55 AM PDT Station ID: [id number]
== END 2021-11-17 16:28 | disposition home or self-care (01) ==
LOC: DI 16:27
PROVIDERS: ATTEND Nurse Practitioner Family
DX: M17.12 Unilateral primary osteoarthritis, left knee (principal); M43.16 Spondylolisthesis, lumbar region; M48.061 Spinal stenosis, lumbar region without neurogenic claudication; M99.73 Connective tissue and disc stenosis of intervertebral foramina of lumbar region; M16.0 Bilateral primary osteoarthritis of hip; M71.22 Synovial cyst of popliteal space [Baker], left knee

== ENCOUNTER 2021-12-24 13:41 | Outpatient (CLI) | payer MEDICARE ==
--- NOTE | 2021-12-24 14:41 | XRAY Report ---
PROCEDURE: Hips 2V BILAT INDICATIONS: HIP PAIN TECHNIQUE: 2 views of the hip were acquired. COMPARISON: None FINDINGS: Bones: No fractures or dislocations. No suspicious bony lesions. The visualized pelvic ring appear s intact. There is moderate bilateral degenerative joint space narrowing. Minimal paratracheal or os teophytes. No erosions. Soft tissues: No suspicious soft tissue calcifications or masses. IMPRESSION: Moderate bilateral hip osteoarthritis. Reviewed by: Sandra Jimenez MD on 12/24/2021 2:40 PM PDT Approved by: Sandra Jimenez MD on 12/24/2021 2:40 PM PDT Station ID: [id number]
== END 2021-12-24 13:42 | disposition home or self-care (01) ==
LOC: DI.S 13:41
PROVIDERS: ATTEND Internal Medicine
DX: M16.0 Bilateral primary osteoarthritis of hip (principal)

== ENCOUNTER 2022-01-19 16:11 | Outpatient (CLI) | payer MEDICARE ==
--- NOTE | 2022-01-19 20:03 | MRI Report ---
PROCEDURE: Knee LT W/O INDICATIONS: LEFT KNEE PAIN TECHNIQUE: Noncontrast sagittal PD fast spin echo and T2 fast spin echo with fat saturation, sagittal 3-D spoile d GE with fat saturation; coronal T1 spin echo and PD fast spin echo with fat saturation, and axial P D fast spin echo with fat saturation through the knee. COMPARISON: Left knee radiographs 11/17/2021. FINDINGS: Image quality: Images are mildly degraded by patient motion on multiple pulse sequences. Diagnostic information is obtained. Anterior cruciate ligament: Intact. Posterior cruciate ligament: Intact. Medial collateral ligament: Intact. Lateral collateral ligament: Intact. Medial meniscus: There is a shallow radial tearing of the posterior horn of the medial meniscus. The re is also probable subtle undersurface tearing of the junction of the posterior horn and body. Lateral meniscus: There is suspected horizontal oblique tearing of the body of the lateral meniscus extending to the inner third of the tibial articular surface. Medial and lateral tendons: The semimembranosus tendon insertions appear intact. Visualized portion s of the pes anserinus tendons appear normal. The popliteus tendon appears intact. Iliotibial band appears normal. Anterior structures: There is mild patella vj. The distal quadriceps tendon is intact. No patellar subluxation. No femoral trochlear dysplasia or ventral trochlear prominence. No edema in the infrapa tellar fat pad. Bones: No acute trabecular bone injury or fracture. Medial femorotibial cartilage: Mild generalized partial-thickness codes thinning is seen in the weig htbearing portion of the medial femorotibial compartment. Lateral femorotibial cartilage: Partial-thickness cartilage irregularity is seen in the central to p osterior portion of the lateral compartment. Patellofemoral cartilage: Areas of high-grade cartilage loss is seen throughout the patellar cartila ge with full-thickness cartilage loss at the lateral facet superiorly with subchondral cystic changes . There is high-grade and suspected full-thickness cartilage loss at the medial femoral trochlea. Soft tissues: There is a small joint effusion. A moderate medial popliteal cyst is seen measuring u p to 9 cm in superior-inferior extent. Soft tissue edema is seen extending inferiorly along the super ficial margin of the gastrocnemius muscle that may indicate prior cyst rupture. The musculature surro unding the knee is normal in bulk. IMPRESSION: 1.Possible shallow radial tearing of the posterior horn of the medial meniscus. Probable small focal undersurface tearing is also seen at the junction of the posterior horn and body of the medial menisc us. 2.Suspected horizontal oblique tear of the body of the lateral meniscus extending to the tibial artic ular surface. 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 Mild grade 2 chondral malacia is seen in the medial and lateral femorotibial compartments. 4.Mild patella vj. 5.Small joint effusion. Moderate medial popliteal cyst with signs of prior cyst rupture. Reviewed by: Royer Keyes MD on 01/19/2022 8:02 PM PDT Approved by: Royer Keyes MD on 01/19/2022 8:02 PM PDT Station ID: [id number]
== END 2022-01-19 16:12 | disposition home or self-care (01) ==
LOC: DI 16:11
PROVIDERS: ATTEND Internal Medicine
DX: M23.92 Unspecified internal derangement of left knee (principal); M22.8X2 Other disorders of patella, left knee; M25.462 Effusion, left knee; M71.22 Synovial cyst of popliteal space [Baker], left knee

== ENCOUNTER 2022-04-07 08:00 | Outpatient (CLI) | payer MEDICARE ==
[2022-04-07 15:55] LABS: BASOPHILS # (AUTO) 0.1 10^3/uL (0.0-0.1); EOSINOPHILS # (AUTO) 1.2 10^3/uL (0.0-0.7); EOSINOPHILS % (AUTO) 16.1 %; HCT - HEMATOCRIT 45.9 % (37.0-47.0); HGB - HEMOGLOBIN 15.6 g/dL (12.0-16.0); LYMPHOCYTES # (AUTO) 2.5 10^3/uL (1.5-3.5); LYMPHOCYTES % (AUTO) 34.9 %; MEAN CORPUSCULAR HEMOGLOBIN 31.6 pg (27.0-31.0); MEAN CORPUSCULAR VOLUME 92.9 fL (81.0-99.0); MEAN PLATELET VOLUME 10.2 fL (7.9-10.8); MONOCYTES # (AUTO) 0.7 10^3/uL (0.0-1.0); MONOCYTES % (AUTO) 9.1 %; NEUTROPHILS # (AUTO) 2.8 10^3/uL (1.5-6.6); NEUTROPHILS % (AUTO) 38.8 %; PLT - PLATELET COUNT 290 10^3/uL (130-450); RED BLOOD COUNT 4.94 10^6/uL (4.20-5.40); RED CELL DISTRIBUTION WIDTH 12.6 % (12.0-15.0); WHITE BLOOD COUNT 7.3 x10^3/uL (4.8-10.8)
[2022-04-07 15:59] LABS: SLIDE REVIEW? Indicated
[2022-04-07 16:16] LABS: ALBUMIN 4.6 g/dL (3.2-5.5); ALBUMIN/GLOBULIN RATIO 1.6 (1.0-2.2); ALKALINE PHOSPHATASE 40 IU/L (42-121); ALT ALANINE AMINOTRANSFERASE 37 IU/L (10-60); AST ASPARTATE AMINOTRANSFERASE 36 IU/L (10-42); BILIRUBIN,TOTAL 0.8 mg/dL (0.2-1.0); BUN - BLOOD UREA NITROGEN 15 mg/dL (6-20); CALCIUM 9.4 mg/dL (8.5-10.3); CARBON DIOXIDE - CO2 29 mmol/L (21-32); CHLORIDE 99 mmol/L (101-111); CHOL/HDL RATIO 2.4 (<4.4); CHOLESTEROL 171 mg/dL; CREATININE 0.7 mg/dL (0.4-1.0); GFR - MDRD 81 (>89); GLUCOSE 85 mg/dL (70-100); HDL CHOLESTEROL 72 mg/dL; LDL CHOLESTEROL,CALCULATED 76 mg/dL; LDL/HDL RATIO 1.1 (<4.4); POTASSIUM 3.9 mmol/L (3.5-5.0); SODIUM 137 mmol/L (135-145); TOTAL PROTEIN 7.5 g/dL (6.7-8.2); TRIGLYCERIDES 117 mg/dL; VLDL CHOLESTEROL 23 mg/dL
[2022-04-07 16:37] LABS: DIFFERENTIAL COMMENT MANUAL=AUTO DIFF; PLATELET ESTIMATE, MANUAL NORMAL (130-450,000) (NORMAL); PLATELET MORPHOLOGY NORMAL APPEARANCE (NORMAL); RBC MORPHOLOGY (MULTIPLE) NORMAL APPEARANCE (NORMAL)
== END 2022-04-07 23:59 | disposition home or self-care (01) ==
LOC: LAB.R 08:00
PROVIDERS: ATTEND Internal Medicine
DX: Z00.00 Encounter for general adult medical examination without abnormal findings (principal); F41.9 Anxiety disorder, unspecified; B37.9 Candidiasis, unspecified; F32.A Depression, unspecified; R74.8 Abnormal levels of other serum enzymes; K76.0 Fatty (change of) liver, not elsewhere classified; M19.90 Unspecified osteoarthritis, unspecified site; M81.0 Age-related osteoporosis without current pathological fracture; Z79.899 Other long term (current) drug therapy
CPT/HCPCS: 80053; 80061; 83721; 84443; 85025

== ENCOUNTER 2022-06-10 13:02 | Outpatient (CLI) | payer MEDICARE ==
--- NOTE | 2022-06-11 10:59 | Mammography Report ---
BILATERAL DIGITAL SCREENING MAMMOGRAM 3D/2D: 06/10/2022 CLINICAL: Routine screening. Comparison is made to exams dated: 04/25/2021 mammogram and 02/19/2014 mammogram - [facility]. There are scattered areas of fibroglandular density in both breasts (category b / 25%-50% glandular t issue). There is a benign mass in the left breast. There also are biopsy clips in the left breast. No significant masses, calcifications, or other findings are seen in either breast. There has been no significant interval change. IMPRESSION: BENIGN There is no mammographic evidence of malignancy. A 1 year screening mammogram is recommended. Based on the Tyrer Cuzick model (a risk assessment model) the patients lifetime risk is 2.2% and her 10 year risk is 0.0%. According to the ACR, ACS, and NCCN guidelines, an annual breast MRI exam starr g with mammogram is recommended if the patients lifetime risk is 20% or greater. This exam was interpreted at Station ID: [id number]. NOTE: For mammograms, a report in lay terms will be sent to the patient. Approximately 15% of breast malignancies will not be visualized mammographically. In the management of a palpable breast mass, a negative mammogram must not discourage biopsy of a clinically suspicious lesion. Electronically Signed By: Jorge bah/[email or web address]:06/10/2022 16:04:01 ACR BI-RADS Category 2: Benign Finding(s) 3342F PARENCHYMAL PATTERN: (A) - The breast(s) demonstrate(s) scattered fibroglandular densities. BI-RADS CATEGORY: (2) - 2 RECOMMENDATION: (ANNUAL) - Recommend routine annual screening mammography. [id number] 1 year screening LATERALITY: (B)
== END 2022-06-10 13:03 | disposition home or self-care (01) ==
LOC: DI 13:02
PROVIDERS: ATTEND Internal Medicine
DX: Z12.31 Encounter for screening mammogram for malignant neoplasm of breast (principal)

== ENCOUNTER 2023-06-04 14:07 | Outpatient (CLI) | payer MEDICARE ==
--- NOTE | 2023-06-04 15:22 | DEXA Report ---
PROCEDURE: Dexa Spine and/or Hip INDICATIONS: OSTEROARTHRITIS TECHNIQUE: Dual energy x-ray absorptiometry (DXA) was performed on a [employer] System. Regions measur ed are the AP Spine, femoral neck, and if needed forearm. COMPARISON: DEXA, 04/25/2021 FINDINGS: Lumbar Spine: Bone Mineral Density 1.001 g/cm/cm,T score -1.7. Increased by 14.9% Left Femoral Neck: Bone Mineral Density 0.840 g/cm/cm, T score -1.4. Left Hip: Bone Mineral Density 0.818 g/cm/cm,T score -1.5. Not significantly changed. (T score greater or equal to -1.0: NORMAL) (T score from -1.1 to -2.4: OSTEOPENIA) (T score less than or equal to -2.5 to: OSTEOPOROSIS) Impression: By WHO criteria, this patient has osteopenia. Compared to last exam dictated 04/25/2021, the patient' s bone density in lumbar spine has increased by 14.9%. The patient's bone density in left hip is unch anged. of the lumbar spine. of the hip. Patients with diagnosis of osteoporosis or osteopenia should have regular bone mineral density assess ment. For those eligible for Medicare, routine testing is allowed once every 2 years. Testing frequ ency can be increased for patients who have rapidly progressing disease or for those who are receivin g medical therapy to restore bone mass. Reviewed by: Sam Bonilla MD on 06/04/2023 3:21 PM PST Approved by: Sam Bonilla MD on 06/04/2023 3:21 PM PST Station ID: [id number]
== END 2023-06-04 14:08 | disposition home or self-care (01) ==
LOC: DI 14:07
PROVIDERS: ATTEND Internal Medicine
DX: M19.90 Unspecified osteoarthritis, unspecified site (principal); M85.89 Other specified disorders of bone density and structure, multiple sites

== ENCOUNTER 2023-06-04 14:12 | Outpatient (CLI) | payer MEDICARE ==
--- NOTE | 2023-06-07 10:00 | Mammography Report ---
BILATERAL DIGITAL SCREENING MAMMOGRAM 3D/2D: 06/04/2023 CLINICAL: Routine screening. Comparison is made to exams dated: 06/10/2022 mammogram, 04/25/2021 mammogram - [facility], 03/22/2019 mammogram - [facility], 03/18/2017 mammogram, 02/25/2016 mammogram, and 5 mammogram - [facility]. There are scattered areas of fibroglandular density in both breasts (category b / 25%-50% glandular t issue). There is a benign mass in the left breast. There also are biopsy clips in the left breast. No significant masses, calcifications, or other findings are seen in either breast. There has been no significant interval change. IMPRESSION: BENIGN There is no mammographic evidence of malignancy. A 1 year screening mammogram is recommended. Based on the Tyrer Cuzick model (a risk assessment model) the patients lifetime risk is 2.0% and her 10 year risk is 0.0%. According to the ACR, ACS, and NCCN guidelines, an annual breast MRI exam starr g with mammogram is recommended if the patients lifetime risk is 20% or greater. This exam was interpreted at Station ID: [id number]. NOTE: For mammograms, a report in lay terms will be sent to the patient. Approximately 15% of breast malignancies will not be visualized mammographically. In the management of a palpable breast mass, a negative mammogram must not discourage biopsy of a clinically suspicious lesion. Electronically Signed By: Abdirizak lee/tarik:06/04/2023 18:43:44 letter sent: No_Letter ACR BI-RADS Category 2: Benign Finding(s) 3342F PARENCHYMAL PATTERN: (A) - The breast(s) demonstrate(s) scattered fibroglandular densities. BI-RADS CATEGORY: (2) - 2 Mammogram [id number] 1 year screening LATERALITY: (B)
== END 2023-06-04 14:13 | disposition home or self-care (01) ==
LOC: DI 14:12
PROVIDERS: ATTEND Internal Medicine
DX: Z12.31 Encounter for screening mammogram for malignant neoplasm of breast (principal); R92.323 Mammographic fibroglandular density, bilateral breasts

== ENCOUNTER 2023-11-17 10:44 | Outpatient (CLI) | payer MEDICARE ==
[2023-11-17 14:34] LABS: BASOPHILS # (AUTO) 0.1 10^3/uL (0.0-0.1); EOSINOPHILS # (AUTO) 0.3 10^3/uL (0.0-0.7); EOSINOPHILS % (AUTO) 4.1 %; HCT - HEMATOCRIT 45.2 % (37.0-47.0); HGB - HEMOGLOBIN 14.9 g/dL (12.0-16.0); LYMPHOCYTES # (AUTO) 2.5 10^3/uL (1.5-3.5); LYMPHOCYTES % (AUTO) 34.9 %; MEAN CORPUSCULAR HEMOGLOBIN 30.8 pg (27.0-31.0); MEAN CORPUSCULAR VOLUME 93.6 fL (81.0-99.0); MONOCYTES # (AUTO) 0.6 10^3/uL (0.0-1.0); MONOCYTES % (AUTO) 8.4 %; NEUTROPHILS # (AUTO) 3.7 10^3/uL (1.5-6.6); NEUTROPHILS % (AUTO) 51.5 %; PLT - PLATELET COUNT 293 10^3/uL (130-450); RED BLOOD COUNT 4.83 10^6/uL (4.20-5.40); WHITE BLOOD COUNT 7.1 x10^3/uL (4.8-10.8)
[2023-11-17 14:50] LABS: ALBUMIN 4.2 g/dL (3.2-5.5); ALBUMIN/GLOBULIN RATIO 1.6 (1.0-2.2); ALKALINE PHOSPHATASE 31 IU/L (42-121); ALT ALANINE AMINOTRANSFERASE 25 IU/L (10-60); AST ASPARTATE AMINOTRANSFERASE 24 IU/L (10-42); BILIRUBIN,TOTAL 0.7 mg/dL (0.2-1.0); BUN - BLOOD UREA NITROGEN 27 mg/dL (6-20); CARBON DIOXIDE - CO2 33 mmol/L (21-32); CHLORIDE 102 mmol/L (101-111); CHOL/HDL RATIO 2.7 (<4.4); CHOLESTEROL 213 mg/dL; CREATININE 0.8 mg/dL (0.6-1.3); GFR - MDRD 70 (>89); GLUCOSE 83 mg/dL (74-104); HDL CHOLESTEROL 79 mg/dL; LDL CHOLESTEROL,CALCULATED 114 mg/dL; LDL/HDL RATIO 1.4 (<4.4); POTASSIUM 4.2 mmol/L (3.5-4.5); SODIUM 139 mmol/L (135-145); TOTAL PROTEIN 6.9 g/dL (6.4-8.9); TRIGLYCERIDES 98 mg/dL (48-352); VLDL CHOLESTEROL 20 mg/dL
[2023-11-17 15:27] LABS: THYROID STIMULATING HORMONE 1.63 uIU/mL (0.34-5.60)
== END 2023-11-17 10:45 | disposition home or self-care (01) ==
LOC: LAB.S 10:44
PROVIDERS: ATTEND Internal Medicine
DX: Z00.00 Encounter for general adult medical examination without abnormal findings (principal); R74.8 Abnormal levels of other serum enzymes; H26.9 Unspecified cataract; K76.0 Fatty (change of) liver, not elsewhere classified; F34.1 Dysthymic disorder; M81.0 Age-related osteoporosis without current pathological fracture
CPT/HCPCS: 36415; 80053; 80061; 82306; 82607; 83721; 84443; 85025

== ENCOUNTER 2023-12-06 16:47 | Outpatient (CLI) | payer MEDICARE ==
--- NOTE | 2023-12-06 17:36 | XRAY Report ---
PROCEDURE: Shoulder 2+V LT INDICATIONS: LEFT SHOULDER PAIN TECHNIQUE: 3 views of the shoulder were acquired. COMPARISON: None. FINDINGS: Bones: No fractures or dislocations. Mild to moderate acromioclavicular joint and glenohumeral join t osteophytic changes are seen. No suspicious bony lesions. Visualized ribs appear intact. Soft tissues: No suspicious soft tissue calcifications. The visualized lungs are within normal limi ts. IMPRESSION: No acute bony abnormality. Mild to moderate left shoulder joint osteoarthritis. Reviewed by: Nima Fortune MD on 12/06/2023 5:35 PM PDT Approved by: Nima Fortune MD on 12/06/2023 5:35 PM PDT Station ID: [id number]
== END 2023-12-06 16:48 | disposition home or self-care (01) ==
LOC: DI 16:47
PROVIDERS: ATTEND Internal Medicine
DX: M19.012 Primary osteoarthritis, left shoulder (principal)

== ENCOUNTER 2024-02-23 16:30 | Outpatient (CLI) | payer MEDICARE | END 2024-02-23 16:31 | disposition home or self-care (01) | LOC: LAB 16:30 | PROVIDERS: ATTEND Internal Medicine | DX: B34.9 Viral infection, unspecified (principal) | CPT/HCPCS: 87635 ==